=== PATIENT | female | born 1950 | race American Indian/Alaskan Native ===

== ENCOUNTER 2017-07-28 07:23 | Outpatient (CLI) | payer MEDICARE, OTHER ==
--- NOTE | 2017-07-29 08:16 | Mammography Report ---
BILATERAL MAMMOGRAM: FINDINGS: The breasts are almost entirely fat (<25% glandular). No mass, distortion, suspicious calcification, or skin change is seen. No significant change when compared to prior exam in June 2016. CAD was utilized. IMPRESSION: Negative mammogram. There is no mammographic evidence of malignancy. RECOMMENDATION: Follow-up per ACS guidelines. BI-RADS CATEGORY: 1 = Negative ACR BI-RADS MAMMOGRAPHIC CODES: 0 = Needs additional imaging evaluation; 1 = Negative; 2 = Benign; 3 = Probably benign; 4 = Suspicious; 5 = Malignant; 6 = Known biopsy-proven malignancy COMMENT: 1. Dense breast tissue, i.e., adenosis, fibrocystic changes, etc., may obscure an underlying neoplasm. 2. Approximately 10% of cancers are not detected with mammography. 3. A negative mammography report should not delay biopsy if a clinically suspicious mass is present. COMMENT: Patient follow-up letters are generated in [employer].
== END 2017-07-28 07:24 | disposition home or self-care (01) ==
LOC: MAMMO 07:23
PROVIDERS: ATTEND Internal Medicine
DX: Z12.31 Encounter for screening mammogram for malignant neoplasm of breast (principal)
CPT/HCPCS: 77067

== ENCOUNTER 2020-08-28 03:11 | Observation (INO) | payer MEDICARE, OTHER ==
[2020-08-28] MEDS ORDERED: MECLIZINE 25 MG TAB PO ONE (03:49)
--- NOTE | 2020-08-28 04:00 | Emergency Department Report ---
HPI <JESSICA SAGASTUME - Last Filed: 08/28/20 08:42> - HPI HPI: This is a 70-year-old -[place] female presents to the emergency department via EMS from home with complaint of some vertigo-like dizziness and a ground-level fall. The patient just returned this evening from a road trip from [facility]. When she got home she felt dizzy. She tried to get some rest hoping that the symptoms would resolve, but when she got up to use the restroom she still felt dizzy, like the room was spinning. At this point the patient had a ground-level fall. She did hit her head but denies any loss of consciousness. At the time of my examination the patient's only complaint is the dizziness. Apparently she does have a history of vertigo. She has not taken anything, nor receive anything, for symptoms prior to presentation. She has a past medical history as well of hypertension and diabetes. She denies any history of MS, CVA, PE/DVT. No sick contacts at home. <MARTHA DAVIDSON - Last Filed: 08/30/20 06:49> - General Chief Complaint: Fall Time Seen by Provider: 08/28/20 03:37 ED Past Medical Hx <JESSICA SAGASTUME - Last Filed: 08/28/20 08:42> - Past Medical History Previous Medical History?: Yes Hx Hypertension: Yes Hx GERD: Yes Hx Asthma: Yes - Surgical History Past Surgical History?: No - Social History Smoking Status: Never Smoker Substance Use Type: None <MARTHA DAVIDSON - Last Filed: 08/30/20 06:49> - Medications Home Medications: Home Medications Medication Instructions Recorded Confirmed Last Taken Type Albuterol Sulfate [Proventil HFA] 1 inhalation INHALATION PRN 07/25/13 08/28/20 Unknown History Beclomethasone Dipropionat(Nf) 1 inhalation INHALATION PRN 07/25/13 08/28/20 Unknown History [Qvar 40MCG] Cyclobenzaprine [Flexeril 10 MG 1 tab PO PRN 07/25/13 08/28/20 Unknown History TAB] Dexlansoprazole [Dexilant] 1 tab PO DAILY 07/25/13 08/28/20 Unknown History Diclofenac Sodium [Voltaren] 1 applicatio TP PRN 07/25/13 08/28/20 Unknown History Lisinopril/Hydrochlorothiazide 1 tab PO DAILY 07/25/13 08/28/20 Unknown History [Zestoretic 20-12.5 mg] Montelukast [Singulair] 1 tab PO PRN 07/25/13 08/28/20 Unknown History traMADoL [Ultram 50 MG tab] 1 tab PO PRN 07/25/13 08/28/20 Unknown History AtorvaSTATin [Lipitor] 40 mg PO QHS #30 tab 08/29/20 Unknown Rx Meclizine [Antivert] 12.5 mg PO TID PRN #20 tablet 08/29/20 Unknown Rx ED Review of Systems ROS: Stated complaint: DIZZINESS, WEAKNESS Other details as noted in HPI <JESSICA SAGASTUME - Last Filed: 08/28/20 08:42> ROS: Stated complaint: DIZZINESS, WEAKNESS Other details as noted in HPI Comment: All other systems reviewed and negative Constitutional: denies: chills, fever Eyes: denies: eye pain, vision change ENT: denies: ear pain, throat pain Respiratory: denies: cough, shortness of breath Cardiovascular: denies: chest pain, palpitations Gastrointestinal: denies: abdominal pain, vomiting Genitourinary: denies: dysuria, discharge Musculoskeletal: denies: back pain, arthralgia Skin: denies: rash, lesions Neurological: vertigo. denies: headache <MARTHA DAVIDSON - Last Filed: 08/30/20 06:49> Physical Exam - Physical Exam Vital Signs: Vital Signs 08/28/20 08/28/20 08/28/20 03:40 03:51 04:06 Temperature 97.7 F Pulse Rate 83 71 84 Respiratory 15 9 L 21 Rate Blood Pressure 124/62 124/62 Blood Pressure 124/62 [right arm] O2 Sat by Pulse 98 98 98 Oximetry 08/28/20 08/28/20 08/28/20 04:16 04:30 04:46 Temperature Pulse Rate 74 73 69 Respiratory 15 15 17 Rate Blood Pressure 124/62 124/62 124/62 Blood Pressure [right arm] O2 Sat by Pulse 99 98 97 Oximetry 08/28/20 08/28/20 08/28/20 05:00 05:16 05:30 Temperature Pulse Rate 73 95 H 72 Respiratory 13 11 L 16 Rate Blood Pressure 124/62 116/71 116/71 Blood Pressure [right arm] O2 Sat by Pulse 96 100 92 Oximetry 08/28/20 08/28/20 08/28/20 06:44 06:45 08:07 Temperature Pulse Rate 87 Respiratory 20 Rate Blood Pressure 116/71 Blood Pressure 106/76 [right arm] O2 Sat by Pulse 97 98 99 Oximetry 08/28/20 08:08 Temperature Pulse Rate Respiratory 20 Rate Blood Pressure Blood Pressure [right arm] O2 Sat by Pulse Oximetry <JESSICA SAGASTUME - Last Filed: 08/28/20 08:42> - Physical Exam Physical Exam: GENERAL: The patient is well-developed well-nourished. HENT: Normocephalic. Atraumatic. Patient has moist mucous membranes. EYES: Extraocular motions are intact. Pupils equal reactive to light bilaterally. There is horizontal nystagmus. NECK: Supple. Trachea is midline. CHEST/LUNGS: Clear to auscultation. There is no respiratory distress noted. HEART/CARDIOVASCULAR: Regular. There is no tachycardia. There is no murmur. ABDOMEN: Abdomen is soft, nontender. Patient has normal bowel sounds. SKIN: Skin is warm and dry. NEURO: The patient is awake, alert, and cooperative. The patient has no focal neurologic deficits. Normal speech. Cranial nerves II through XII grossly intact. No facial asymmetry. No pronator drift. MUSCULOSKELETAL: There is no tenderness or deformity. There is no limitation range of motion. <MARTHA DAVIDSON S - Last Filed: 08/30/20 06:49> ED Course Vital Signs 08/28/20 08/28/20 08/28/20 03:40 03:51 04:06 Temperature 97.7 F Pulse Rate 83 71 84 Respiratory 15 9 L 21 Rate Blood Pressure 124/62 124/62 Blood Pressure 124/62 [right arm] O2 Sat by Pulse 98 98 98 Oximetry 08/28/20 08/28/20 08/28/20 04:16 04:30 04:46 Temperature Pulse Rate 74 73 69 Respiratory 15 15 17 Rate Blood Pressure 124/62 124/62 124/62 Blood Pressure [right arm] O2 Sat by Pulse 99 98 97 Oximetry 08/28/20 08/28/20 08/28/20 05:00 05:16 05:30 Temperature Pulse Rate 73 95 H 72 Respiratory 13 11 L 16 Rate Blood Pressure 124/62 116/71 116/71 Blood Pressure [right arm] O2 Sat by Pulse 96 100 92 Oximetry 08/28/20 08/28/20 08/28/20 06:44 06:45 08:07 Temperature Pulse Rate 87 Respiratory 20 Rate Blood Pressure 116/71 Blood Pressure 106/76 [right arm] O2 Sat by Pulse 97 98 99 Oximetry 08/28/20 08:08 Temperature Pulse Rate Respiratory 20 Rate Blood Pressure Blood Pressure [right arm] O2 Sat by Pulse Oximetry <JESSICA SAGASTUME - Last Filed: 08/28/20 08:42> ED Medical Decision Making - Lab Data Result diagrams: 08/28/20 04:08 08/28/20 04:08 - Medical Decision Making Received signout from Dr. Conte to follow-up on patient's CTA results. CTA shows possible vertebral artery irregularity. She ambulated to the bathroom with the nurse, and states that she is feeling much better, however she still has some residual dizziness present. Will admit to hospitalist for further management and work-up. <JESSICA SAGASTUME - Last Filed: 08/28/20 08:42> - Lab Data Result diagrams: 08/28/20 04:08 08/28/20 04:08 Lab Results 08/28/20 08/28/20 08/28/20 Range/Units 04:08 04:08 04:08 WBC 7.3 (4.5-11.0) K/mm3 RBC 4.30 (3.65-5.03) M/mm3 Hgb 13.2 (10.1-14.3) gm/dl Hct 39.8 (30.3-42.9) % MCV 93 (79-97) fl MCH 31 (28-32) pg MCHC 33 (30-34) % RDW 14.7 (13.2-15.2) % Plt Count 243 (140-440) K/mm3 Lymph % (Auto) 16.9 (13.4-35.0) % [place] % (Auto) 5.7 (0.0-7.3) % Eos % (Auto) 0.9 (0.0-4.3) % Baso % (Auto) 0.2 (0.0-1.8) % Lymph # (Auto) 1.2 (1.2-5.4) K/mm3 [place] # (Auto) 0.4 (0.0-0.8) K/mm3 Eos # (Auto) 0.1 (0.0-0.4) K/mm3 Baso # (Auto) 0.0 (0.0-0.1) K/mm3 Seg Neutrophils % 76.3 H (40.0-70.0) % Seg Neutrophils # 5.6 (1.8-7.7) K/mm3 PT 12.1 L (12.2-14.9) Sec. INR 0.91 (0.87-1.13) Sodium 144 (137-145) mmol/L Potassium 3.7 (3.6-5.0) mmol/L Chloride 106.2 (98-107) mmol/L Carbon Dioxide 27 (22-30) mmol/L Anion Gap 15 mmol/L BUN 25 H (7-17) mg/dL Creatinine 1.0 (0.6-1.2) mg/dL Estimated GFR > 60 ml/min BUN/Creatinine Ratio 25 % Glucose 137 H (65-100) mg/dL Calcium 8.8 (8.4-10.2) mg/dL Total Bilirubin 0.20 (0.1-1.2) mg/dL AST 19 (5-40) units/L ALT 11 (7-56) units/L Alkaline Phosphatase 114 (35-129) units/L Troponin T < 0.010 (0.00-0.029) ng/mL Total Protein 7.1 (6.3-8.2) g/dL Albumin 4.0 (3.9-5) g/dL Albumin/Globulin Ratio 1.3 % TSH (0.270-4.200) mlU/mL 08/28/20 Range/Units 04:08 WBC (4.5-11.0) K/mm3 RBC (3.65-5.03) M/mm3 Hgb (10.1-14.3) gm/dl Hct (30.3-42.9) % MCV (79-97) fl MCH (28-32) pg MCHC (30-34) % RDW (13.2-15.2) % Plt Count (140-440) K/mm3 Lymph % (Auto) (13.4-35.0) % [place] % (Auto) (0.0-7.3) % Eos % (Auto) (0.0-4.3) % Baso % (Auto) (0.0-1.8) % Lymph # (Auto) (1.2-5.4) K/mm3 [place] # (Auto) (0.0-0.8) K/mm3 Eos # (Auto) (0.0-0.4) K/mm3 Baso # (Auto) (0.0-0.1) K/mm3 Seg Neutrophils % (40.0-70.0) % Seg Neutrophils # (1.8-7.7) K/mm3 PT (12.2-14.9) Sec. INR (0.87-1.13) Sodium (137-145) mmol/L Potassium (3.6-5.0) mmol/L Chloride (98-107) mmol/L Carbon Dioxide (22-30) mmol/L Anion Gap mmol/L BUN (7-17) mg/dL Creatinine (0.6-1.2) mg/dL Estimated GFR ml/min BUN/Creatinine Ratio % Glucose (65-100) mg/dL Calcium (8.4-10.2) mg/dL Total Bilirubin (0.1-1.2) mg/dL AST (5-40) units/L ALT (7-56) units/L Alkaline Phosphatase (35-129) units/L Troponin T (0.00-0.029) ng/mL Total Protein (6.3-8.2) g/dL Albumin (3.9-5) g/dL Albumin/Globulin Ratio % TSH 1.480 (0.270-4.200) mlU/mL - EKG Data -: EKG Interpreted by Me EKG shows normal: sinus rhythm, axis, intervals, QRS complexes, ST-T waves Rate: normal - EKG Data When compared to previous EKG there are: previous EKG unavailable Interpretation: normal EKG - Radiology Data Radiology results: report reviewed, image reviewed interpreted by me: Chest x-ray does not show any acute process. There are no pleural effusions, obvious pneumonia and there is no pneumothorax. No significant cardiomegaly. CT HEAD WITHOUT CONTRAST INDICATION / CLINICAL INFORMATION: Dizziness. TECHNIQUE: All CT scans at this location are performed using CT dose reduction for ALARA by means of automated exposure control. COMPARISON: None available. FINDINGS: HEMORRHAGE: None. EXTRA-AXIAL SPACES: Normal in size and morphology for the patient's age. VENTRICULAR SYSTEM: Normal in size and morphology for the patient's age. CEREBRAL PARENCHYMA: No significant abnormality. No acute territorial infarct. MIDLINE SHIFT / HERNIATION: None. CEREBELLUM / BRAINSTEM: No significant abnormality. ORBITS: Normal as visualized. SOFT TISSUES: No significant abnormality. SKULL: No significant abnormality. PARANASAL SINUSES / MASTOID AIR CELLS: Normal as visualized. ADDITIONAL FINDINGS: None. IMPRESSION: 1. No acute intracranial abnormality. - Medical Decision Making This patient presents to the emergency department with a complaint of some dizziness/vertigo that started upon return to her home after visiting [facility]. There is dizziness continued into this evening when the patient had a ground-level fall. During my examination the patient has some fatigable horizontal nystagmus. Otherwise there is no obvious focal, motor or sensory deficits and cranial nerves are intact. CT scan of the head without contrast does not show any bleed, shift, mass, large vessel occlusion, or any other acute process. Patient's labs have thus far been unremarkable including CBC, metabolic panel, TSH level, negative troponin. EKG does not have any morphology consistent with ST elevation myocardial infarction or any dysrhythmia. At this time, the patient still complains of having the room spinning dizziness/vertigo sensation. I am ordering a CT angiography of the head and neck to rule out a posterior circulation stroke. This case will be signed out to my colleague, Dr. Sagastume, to follow the results of the CT angiography studies and assist with further disposition. <MARTHA DAVIDSON - Last Filed: 08/30/20 06:49> Critical care attestation.: If time is entered above; I have spent that time in minutes in the direct care of this critically ill patient, excluding procedure time. <JESSICA SAGASTUME - Last Filed: 08/28/20 08:42> Critical Care Time: No Critical care attestation.: If time is entered above; I have spent that time in minutes in the direct care of this critically ill patient, excluding procedure time. <MARTHA DAVIDSON - Last Filed: 08/30/20 06:49> ED Disposition Is pt being admited?: Yes Time of Disposition: 08:42 <JESSICA SAGASTUME - Last Filed: 08/28/20 08:42> Is pt being admited?: Yes <MARTHA DAVIDSON - Last Filed: 08/30/20 06:49> Clinical Impression: Vertigo, Dizziness, Fall from ground level Disposition: DC-09 OP ADMIT IP TO THIS HOSP Condition: Stable
--- NOTE | 2020-08-28 04:36 | Cat Scan Report ---
CT HEAD WITHOUT CONTRAST INDICATION / CLINICAL INFORMATION: Dizziness. TECHNIQUE: All CT scans at this location are performed using CT dose reduction for ALARA by means of automated exposure control. COMPARISON: None available. FINDINGS: HEMORRHAGE: None. EXTRA-AXIAL SPACES: Normal in size and morphology for the patient's age. VENTRICULAR SYSTEM: Normal in size and morphology for the patient's age. CEREBRAL PARENCHYMA: No significant abnormality. No acute territorial infarct. MIDLINE SHIFT / HERNIATION: None. CEREBELLUM / BRAINSTEM: No significant abnormality. ORBITS: Normal as visualized. SOFT TISSUES: No significant abnormality. SKULL: No significant abnormality. PARANASAL SINUSES / MASTOID AIR CELLS: Normal as visualized. ADDITIONAL FINDINGS: None. IMPRESSION: 1. No acute intracranial abnormality. Signer Name: Gary Damian MD Signed: 08/28/2020 4:32 AM Workstation Name: [id number]
[2020-08-28 04:44] LABS: Basophils % (Auto) 0.2 % (0.0-1.8); Eosinophils # (Auto) 0.1 K/mm3 (0.0-0.4); Eosinophils % (Auto) 0.9 % (0.0-4.3); Hematocrit 39.8 % (30.3-42.9); Hemoglobin 13.2 gm/dl (10.1-14.3); Lymphocytes # (Auto) 1.2 K/mm3 (1.2-5.4); Lymphocytes % (Auto) 16.9 % (13.4-35.0); Mean Corpuscular HGB Conc 33 % (30-34); Mean Corpuscular Volume 93 fl (79-97); Monocytes # (Auto) 0.4 K/mm3 (0.0-0.8); Monocytes % (Auto) 5.7 % (0.0-7.3); Platelet Count 243 K/mm3 (140-440); Red Cell Distribution Width 14.7 % (13.2-15.2)
[2020-08-28 04:50] LABS: INR 0.91 (0.87-1.13)
--- NOTE | 2020-08-28 04:52 | XRay Report ---
CHEST 1 VIEW 08/28/2020 4:08 AM INDICATION / CLINICAL INFORMATION: Dizziness. COMPARISON: None available. FINDINGS: SUPPORT DEVICES: None. HEART / MEDIASTINUM: No significant abnormality. LUNGS / PLEURA: No significant pulmonary or pleural abnormality. No pneumothorax. ADDITIONAL FINDINGS: There is elevation right hemidiaphragm. IMPRESSION: 1. No acute findings. Signer Name: Gary Damian MD Signed: 08/28/2020 4:48 AM Workstation Name: [id number]
[2020-08-28 05:03] LABS: Alanine Aminotransferase 11 units/L (7-56); BUN/Creatinine Ratio 25; Blood Urea Nitrogen 25 mg/dL (7-17); Calcium 8.8 mg/dL (8.4-10.2); Hemolysis Index 4
--- NOTE | 2020-08-28 08:28 | Cat Scan Report ---
CTA NECK WITH CONTRAST 08/28/2020 INDICATION / CLINICAL INFORMATION: Vertigo, fall, r/o posterior circulation CVA. COMPARISON: None. TECHNIQUE: Routine CTA of the neck is performed. 3-D/MIP reformats were postprocessed. Percentage st enosis is determined by direct quantitative measurements of diseased internal carotid artery diameter compared with normal distal internal carotid artery reference segments or by criteria similar to MARTÍNEZ CET where applicable. All CT scans at this location are performed using CT dose reduction for ALARA b y means of automated exposure control. CONTRAST: 100 ml of Isovue 370 FINDINGS: Carotid bifurcations: There is no evidence of carotid bifurcation stenosis. Carotid arteries: No significant abnormality. Cervical vertebral arteries: There is venous contrast reflux into the paraspinal venous structures, w hich creates focal areas of beam hardening artifact along the course of the right vertebral artery. T here is some possible irregularity and narrowing of the right vertebral artery in the mid cervical re gion, approximately the C5 level, which is somewhat visually accentuated by the presence of the dense venous reflux contrast. The more distal cervical vertebral artery is normal in caliber,. Vertebral a rtery is also somewhat irregular C5 level although not as prominently narrow. This is also impacted b y beam hardening artifact from refluxed venous contrast. Aortic arch: No significant arterial abnormality. The refluxed contrast mentioned above appears to be associated with narrowing of the right rectus cephalic vein where it crosses the brachycephalic noe ry. None. IMPRESSION: 1. No evidence of carotid bifurcation stenosis. 2. Possible vertebral artery irregularity, although with beam hardening artifact as described above. 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 Signer Name: Supa Oakes MD Signed: 08/28/2020 8:23 AM Workstation Name: [id number]
--- NOTE | 2020-08-28 08:31 | Cat Scan Report ---
CTA HEAD WITH CONTRAST 08/28/2020 HISTORY: Vertigo. COMPARISON: None. TECHNIQUE: All CT scans at this location are performed using CT dose reduction for ALARA by means of automated exposure control.. 3-D/MIP reformats postprocessed. Percentage stenosis is determined by d irect quantitative measurements of diseased internal carotid artery diameter compared with normal dis armando internal carotid artery reference segments or by criteria similar to NASCET where applicable. CONTRAST: 100 ml of Omnipaque 350 FINDINGS: CTA HEAD: Intracranial vertebral arteries: No significant abnormality. Basilar artery: No significant abnormality. Posterior cerebral arteries: No significant abnormality. Intracranial internal carotid arteries: No significant abnormality. Anterior cerebral arteries: No significant abnormality. Middle cerebral arteries: No significant abnormality. Dural venous sinuses:Not optimally opacified. No significant abnormality. Additional findings: None. IMPRESSION: 1. No significant abnormality. Signer Name: Supa Oakes MD Signed: 08/28/2020 8:26 AM Workstation Name: [id number]
--- NOTE | 2020-08-28 10:39 | Electrocardiograph Report ---
[facility] Test Date: 2020-08-28 Test Time: 04:34:40 Pat Name: BASIL DORAN Department: Room: A465 Gender: F Executive Legal Secretary: YIFAN : 1950 Requested By: MARTHA DAVIDSON Order Number: [id number] Reading MD: Kuldeep Willard Measurements Intervals Freer Rate: 73 P: 28 ND: 165 QRS: -7 QRSD: 98 T: 40 QT: 413 QTc: 457 Interpretive Statements Sinus rhythm Low voltage, precordial leads No previous ECG available for comparison Electronically Signed On 08-28-2020 10:39:33 EDT by Kuldeep Willard
--- NOTE | 2020-08-28 14:42 | History and Physical Report ---
History of Present Illness Date of examination: 08/28/20 Date of admission: 08/28/20 08:44 Chief complaint: Dizziness/vertigo/syncope History of present illness: 70-year-old obese -Vincent[place] female patient with significant past medical history of bronchial asthma hypertension GERD Presented to the emergency room with history of vertigo dizziness and ground-le jono fall patient just returned from a road trip from [facility] reports that she felt dizzy at home try to get some rest however when she got up to use the restroom she still felt dizzy the room spinning patient had a ground-level fall she did hit her head on the floor denies any loss of consciousness no seizures like activity no tongue bite, no bladder or bowel incontinence. CT head in the emergency room is negative for acute abnormality. The time of my evaluation patient is alert awake oriented x3 Patient denies any chest pain or shortness of breath Denies nausea vomiting or abdominal pain However complains of severe excruciating ache Chief Complaint: Fall Time Seen by Provider: 08/28/20 03:37 ED Past Medical Hx - Past Medical History Previous Medical History?: Yes Hx Hypertension: Yes Hx GERD: Yes Hx Asthma: Yes - Surgical History Past Surgical History?: No Past History Past Medical History: GERD, hypertension Past Surgical History: No surgical history Social history: lives with family, full code. denies: smoking, alcohol abuse, prescription drug abuse Family history: hypertension Medications and Allergies Allergies Allergy/AdvReac Type Severity Reaction Status Date / Time Sulfa (Sulfonamide AdvReac Intermediate ITCHING,HIV Verified 07/26/13 10:28 Antibiotics) ES Home Medications Medication Instructions Recorded Confirmed Last Taken Type Albuterol Sulfate [Proventil HFA] 1 inhalation INHALATION PRN 07/25/13 08/28/20 Unknown History Beclomethasone Dipropionat(Nf) 1 inhalation INHALATION PRN 07/25/13 08/28/20 Unknown History [Qvar 40MCG] Cyclobenzaprine [Flexeril 10 MG 1 tab PO PRN 07/25/13 08/28/20 Unknown History TAB] Dexlansoprazole [Dexilant] 1 tab PO DAILY 07/25/13 08/28/20 Unknown History Diclofenac Sodium [Voltaren] 1 applicatio TP PRN 07/25/13 08/28/20 Unknown History Lisinopril/Hydrochlorothiazide 1 tab PO DAILY 07/25/13 08/28/20 Unknown History [Zestoretic 20-12.5 mg] Montelukast [Singulair] 1 tab PO PRN 07/25/13 08/28/20 Unknown History traMADoL [Ultram 50 MG tab] 1 tab PO PRN 07/25/13 08/28/20 Unknown History Review of Systems Constitutional: weakness, no weight loss, no weight gain, no anorexia, no fatigue Ears, nose, mouth and throat: no ear pain, no ear discharge, no sinus pressure Cardiovascular: lightheadedness, no chest pain, no orthopnea Respiratory: shortness of breath, dyspnea on exertion, no cough, no hemoptysis Gastrointestinal: no abdominal pain, no nausea, no vomiting Genitourinary Female: no pelvic pain, no dysuria Musculoskeletal: no myalgias, no arthritis Integumentary: no rash, no pruritis, no lesions Neurological: weakness, syncope (Near syncope), ataxia, vertigo, change in mentation Psychiatric: no anxiety, no depression Endocrine: no cold intolerance, no heat intolerance, no polydipsia, no polyuria Hematologic/Lymphatic: no easy bruising, no easy bleeding Allergic/Immunologic: no urticaria, no allergic rhinitis Exam - Constitutional Vitals: Temp Pulse Resp BP Pulse Ox 97.7 F 75 15 147/82 96 08/28/20 03:40 08/28/20 13:00 08/28/20 13:00 08/28/20 13:00 08/28/20 13:00 General appearance: Present: mild distress, well-nourished, obese - EENT Eyes: Present: PERRL, EOM intact (Obese) - Neck Neck: Present: supple, normal ROM - Respiratory Respiratory effort: normal Respiratory: bilateral: diminished, negative: rales, rhonchi, wheezing - Cardiovascular Rhythm: regular - Extremities Extremities: no ischemia, No edema - Abdominal General gastrointestinal: Present: soft, non-tender, non-distended, normal bowel sounds - Integumentary Integumentary: Present: clear, warm - Musculoskeletal Musculoskeletal: strength equal bilaterally, generalized weakness - Psychiatric Psychiatric: appropriate mood/affect, cooperative - Neurologic Neurologic: moves all extremities HEART Score - HEART Score Troponin: Troponin T < 0.010 ng/mL (0.00-0.029) 08/28/20 04:08 Results - Labs CBC & Chem 7: 08/28/20 04:08 08/28/20 04:08 Labs: Abnormal lab results 08/28/20 08/28/20 08/28/20 Range/Units 04:08 04:08 04:08 Seg Neutrophils % 76.3 H (40.0-70.0) % PT 12.1 L (12.2-14.9) Sec. BUN 25 H (7-17) mg/dL Glucose 137 H (65-100) mg/dL Assessment and Plan --History of fall; Ground-level fall at home, secondary to dizziness and vertigo Fall precautions. Physical therapy. Occupational Therapy CT head without contrast negative for acute abnormality --Vertigo; Fall precautions, meclizine as needed Consider MRI if needed Physical therapy occupational therapy Possible home with home health versus rehab pending PT OT --Obesity; BMI 35.5 Patient needs weight reduction Diet modification exercise as tolerated when medically stable --DVT prophylaxis; Lovenox --Follow PT OT --DC planning per case management We will closely monitor the patient and adjust the management as needed We will closely monitor the patient and adjust management as needed Follow vascular neuro work-up Follow PT OT evaluation and recommendations DC planning per case management Since patient is elderly and recurrent falls, would benefit by placement either acute versus subacute rehab /SNF placement Plan of care reviewed with the patient and her nurse
[2020-08-28] MEDS ORDERED: ALBUTEROL 8.5 GM MDI INHALATION IH SCH (14:45)
[2020-08-28] MEDS ORDERED: DICLOFENAC SODIUM 1% TOPICAL GEL 100 GM TP PRN (15:00)
[2020-08-28] MEDS ORDERED: CYCLOBENZAPRINE 10 MG TAB PO SCH (15:00)
[2020-08-28] MEDS ORDERED: MECLIZINE 12.5 MG TAB PO PRN (15:24)
[2020-08-28] MEDS ORDERED: hydrALAZINE 20 MG/1 ML INJ IV PRN (17:30)
[2020-08-28] MEDS ORDERED: MONTELUKAST 10 MG TAB PO SCH (18:00)
[2020-08-28] MEDS ORDERED: ALBUTEROL 2.5 MG/3 ML NEBU IH PRN (20:55)
[2020-08-28] MEDS: hydrALAZINE 25 MG TAB PO SCH (21:51)
[2020-08-28] MEDS ORDERED: ENOXAPARIN 40 MG/0.4 ML INJ SUB-Q SCH (22:00)
[2020-08-28] MEDS ORDERED: MECLIZINE 25 MG TAB PO PRN (23:00)
[2020-08-29] MEDS: hydrALAZINE 25 MG TAB PO SCH ×2 (05:09→13:30)
[2020-08-29 06:16] LABS: Chol/HDL Ratio 3.59 %
[2020-08-29] MEDS ORDERED: traMADol 50 MG TAB PO PRN (08:00)
--- NOTE | 2020-08-29 10:53 | Progress Note ---
Assessment and Plan Assessment and plan: --History of fall; Ground-level fall at home, secondary to dizziness and vertigo Fall precautions. Physical therapy. Occupational Therapy CT head without contrast negative for acute abnormality --Vertigo; Fall precautions, meclizine as needed Consider MRI if needed Physical therapy occupational therapy Possible home with home health versus rehab pending PT OT --Obesity; BMI 35.5 Patient needs weight reduction Diet modification exercise as tolerated when medically stable --DVT prophylaxis; Lovenox --Follow PT OT --DC planning per case management We will closely monitor the patient and adjust the management as needed We will closely monitor the patient and adjust management as needed Follow vascular neuro work-up Follow PT OT evaluation and recommendations DC planning per case management Since patient is elderly and recurrent falls, would benefit by placement either acute versus subacute rehab /SNF placement Plan of care reviewed with the patient and her nurse Hospitalist Physical - Constitutional Vitals: Temp Pulse Resp BP Pulse Ox 98.1 F 71 19 121/67 100 08/29/20 08:30 08/29/20 10:52 08/29/20 10:00 08/29/20 08:30 08/29/20 10:00 General appearance: Present: mild distress, well-nourished, obese HEART Score - HEART Score Troponin: Troponin T < 0.010 ng/mL (0.00-0.029) 08/28/20 04:08 Results - Labs CBC & Chem 7: 08/28/20 04:08 08/28/20 04:08 Labs: Laboratory Last Values WBC 7.3 K/mm3 (4.5-11.0) 08/28/20 04:08 RBC 4.30 M/mm3 (3.65-5.03) 08/28/20 04:08 Hgb 13.2 gm/dl (10.1-14.3) 08/28/20 04:08 Hct 39.8 % (30.3-42.9) 08/28/20 04:08 MCV 93 fl (79-97) 08/28/20 04:08 MCH 31 pg (28-32) 08/28/20 04:08 MCHC 33 % (30-34) 08/28/20 04:08 RDW 14.7 % (13.2-15.2) 08/28/20 04:08 Plt Count 243 K/mm3 (140-440) 08/28/20 04:08 Lymph % (Auto) 16.9 % (13.4-35.0) 08/28/20 04:08 Holmes % (Auto) 5.7 % (0.0-7.3) 08/28/20 04:08 Eos % (Auto) 0.9 % (0.0-4.3) 08/28/20 04:08 Baso % (Auto) 0.2 % (0.0-1.8) 08/28/20 04:08 Lymph # (Auto) 1.2 K/mm3 (1.2-5.4) 08/28/20 04:08 Holmes # (Auto) 0.4 K/mm3 (0.0-0.8) 08/28/20 04:08 Eos # (Auto) 0.1 K/mm3 (0.0-0.4) 08/28/20 04:08 Baso # (Auto) 0.0 K/mm3 (0.0-0.1) 08/28/20 04:08 Seg Neutrophils % 76.3 % (40.0-70.0) H 08/28/20 04:08 Seg Neutrophils # 5.6 K/mm3 (1.8-7.7) 08/28/20 04:08 PT 12.1 Sec. (12.2-14.9) L 08/28/20 04:08 INR 0.91 (0.87-1.13) 08/28/20 04:08 Sodium 144 mmol/L (137-145) 08/28/20 04:08 Potassium 3.7 mmol/L (3.6-5.0) 08/28/20 04:08 Chloride 106.2 mmol/L (98-107) 08/28/20 04:08 Carbon Dioxide 27 mmol/L (22-30) 08/28/20 04:08 Anion Gap 15 mmol/L 08/28/20 04:08 BUN 25 mg/dL (7-17) H 08/28/20 04:08 Creatinine 1.0 mg/dL (0.6-1.2) 08/28/20 04:08 Estimated GFR > 60 ml/min 08/28/20 04:08 BUN/Creatinine Ratio 25 % 08/28/20 04:08 Glucose 137 mg/dL (65-100) H 08/28/20 04:08 Calcium 8.8 mg/dL (8.4-10.2) 08/28/20 04:08 Total Bilirubin 0.20 mg/dL (0.1-1.2) 08/28/20 04:08 AST 19 units/L (5-40) 08/28/20 04:08 ALT 11 units/L (7-56) 08/28/20 04:08 Alkaline Phosphatase 114 units/L (35-129) 08/28/20 04:08 Troponin T < 0.010 ng/mL (0.00-0.029) 08/28/20 04:08 Total Protein 7.1 g/dL (6.3-8.2) 08/28/20 04:08 Albumin 4.0 g/dL (3.9-5) 08/28/20 04:08 Albumin/Globulin Ratio 1.3 % 08/28/20 04:08 Triglycerides 144 mg/dL (2-149) 08/29/20 05:41 Cholesterol 205 mg/dL (50-199) H 08/29/20 05:41 LDL Cholesterol Direct 141 mg/dL (50-130) H 08/29/20 05:41 HDL Cholesterol 57 mg/dL (40-59) 08/29/20 05:41 Cholesterol/HDL Ratio 3.59 % 08/29/20 05:41 TSH 1.480 mlU/mL (0.270-4.200) 08/28/20 04:08 Naranjo/IV: Voiding Method Toilet Active Medications - Current Medications Current Medications: Generic Name Dose Route Start Last Admin Trade Name Freq PRN Reason Stop Dose Admin Albuterol 2.5 mg 08/28/20 20:55 Albuterol 2.5 Mg/3 Ml Nebu IH Q4HRT PRN Shortness Of Breath Diclofenac Sodium 1 applic 08/28/20 15:00 Diclofenac Sodium 1% Topical Gel 100 Gm TP QID PRN ARTHRITIC PAIN Enoxaparin Sodium 40 mg 08/28/20 22:00 08/28/20 21:51 Enoxaparin 40 Mg/0.4 Ml Inj SUB-Q 40 mg QDAY@2200 [facility] Administration Protocol Hydralazine HCl 25 mg 08/28/20 22:00 08/29/20 05:09 Hydralazine 25 Mg Tab PO 25 mg Q8HR MIKE Administration Hydralazine HCl 10 mg 08/28/20 17:30 Hydralazine 20 Mg/1 Ml Inj IV Q4HR PRN Hypertension Meclizine HCl 12.5 mg 08/28/20 23:00 Meclizine 25 Mg Tab PO Q12H PRN Vertigo Montelukast Sodium 10 mg 08/28/20 18:00 08/28/20 17:50 Montelukast 10 Mg Tab PO 10 mg QPM MIKE Administration Tramadol HCl 50 mg 08/29/20 08:00 Tramadol 50 Mg Tab PO Q6H PRN Pain, Moderate (4-6)
[2020-08-29 13:30] VITALS: BP 133/67
--- NOTE | 2020-08-29 14:44 | Discharge Summary ---
Providers - Providers Date of Admission: 08/28/20 08:44 Date of discharge: 08/29/20 Attending physician: ESME MIKE 08/28/20 15:20 Occupational Therapy Evaluate and Treat [CONS] Routine Comment: Reason For Exam: Vertigo/unsteady gait Physical Therapy Evaluation and Treat [CONS] Routine Comment: Reason For Exam: Vertigo/unsteady gait Primary care physician: BUSINESS PROCESS CONSULTANT Hospitalization Reason for admission: Vertigo/dizziness/ground-level fall Condition: Stable Pertinent studies: CT head without contrast; no acute abnormality noted CTA neck; possible vertebral artery irregularity although with beam hardening artifact as described above stenosis of the brachiocephalic vein no evidence of carotid bifurcation stenosis CTA head; no acute abnormality noted Echocardiogram; EF 55 to 60%, mild diastolic dysfunction Hospital course: 70-year-old obese female patient was admitted through emergency room with dizziness, vertigo and ground-level fall Patient was admitted to the hospital had extensive work-up which was negative Patient had mild orthostatic changes, received physical therapy occupational therapy with no needs Treated with meclizine as needed. Patient symptoms significantly improved, no new episodes of vertigo Today patient is comfortable no new complaints vital signs stable physical examination unremarkable Patient is hemodynamically and clinically stable at discharge, patient has minimal l orthostatic changes However PT recommended vestibular rehabilitation. Strongly advised to see private ENT/[facility] within 1 week As well as neurologist in 1 to 2 weeks if needed Patient also advised weight reduction dietary modification exercise as tolerated when medically stable Discharge diagnosis --History of fall; due to vertigo and dizziness Ground-level fall at home, supportive care PT OT, recommend vestibular rehabilitation/PT --Vertigo; Fall precautions, meclizine as needed Neuro work-up so far negative --Obesity; BMI 35.5 Patient needs weight reduction Diet modification exercise as tolerated when medically stable --Dyslipidemia; Low-cholesterol diet Lipitor --DVT prophylaxis; Lovenox during hospital stay Ambulation as tolerated at home on discharge Stable at discharge Disposition: DC-01 TO HOME OR SELFCARE Final Discharge Diagnosis (Prints w/discharge instructions): History of fall. Vertigo. Obesity BMI 35.5. Dyslipidemia Time spent for discharge: 35 min Core Measure Documentation - Palliative Care Palliative Care/ Comfort Measures: Not Applicable - Core Measures Any of the following diagnoses?: none Exam - Constitutional Vitals: Temp Pulse Resp BP Pulse Ox 98.1 F 89 19 133/67 99 08/29/20 08:30 08/29/20 13:30 08/29/20 10:00 08/29/20 13:30 08/29/20 11:11 General appearance: Present: no acute distress, well-nourished, obese - EENT Eyes: Present: PERRL, EOM intact - Neck Neck: Present: supple, normal ROM - Respiratory Respiratory effort: normal Respiratory: bilateral: diminished, negative: rales, rhonchi, wheezing - Cardiovascular Rhythm: regular Heart Sounds: Present: S1 & S2 - Extremities Extremities: no ischemia, No edema - Abdominal General gastrointestinal: Present: soft, non-tender, non-distended, normal bowel sounds - Integumentary Integumentary: Present: clear, warm - Musculoskeletal Musculoskeletal: strength equal bilaterally, generalized weakness - Psychiatric Psychiatric: appropriate mood/affect, cooperative - Neurologic Neurologic: CNII-XII intact, moves all extremities Plan Activity: advance as tolerated, fall precautions Diet: regular Additional Instructions: Advised to see ENT surgeon/[facility] [address] for further evaluation of vertigo. Fall precautions. If symptoms persist advised to see private neurologist Dr. Pichardo as needed. If you have worsening symptoms contact MD or go to the nearest emergency room Follow up with: DAGMAR AMEZQUITA MD [Staff Physician] - 7 Days PRIMARY CARE, [Primary Care Provider] - 3-5 Days CUONG PICHARDO MD [Staff Physician] - 7 Days Prescriptions: Meclizine [Antivert] 12.5 mg PO TID PRN #20 tablet PRN Reason: Vertigo Other Discharge Orders: Physicial Therapy (Amb) Location: None Selected
== END 2020-08-29 16:17 | disposition home or self-care (01) ==
LOC: ED 03:11 → 4A 08:44
PROVIDERS: ADMIT Internal Medicine; ATTEND Internal Medicine
DX: R42 Dizziness and giddiness (principal); E66.9 Obesity, unspecified; I10 Essential (primary) hypertension; K21.9 Gastro-esophageal reflux disease without esophagitis; J45.909 Unspecified asthma, uncomplicated; E78.5 Hyperlipidemia, unspecified; Z68.35 Body mass index [BMI] 35.0-35.9, adult; Z91.81 History of falling; Z79.899 Other long term (current) drug therapy; W18.30XA Fall on same level, unspecified, initial encounter; Y93.89 Activity, other specified; Y92.89 Other specified places as the place of occurrence of the external cause; Y99.8 Other external cause status
CPT/HCPCS: 36415; 70450; 70496; 70498; 71045; 80053; 80061; 84443; 84484; 85025; 85610; 93005; 93306; 96372; 97161; 99285; G0378; J1650; Q9967